=== PATIENT | female | born 1965 | race Caucasian/White ===

== ENCOUNTER 2024-01-03 19:25 | Emergency (ER) | payer OTHER ==
--- NOTE | 2024-01-03 19:52 | ED ---
General Adult HPI - General Source: RN notes reviewed <Chato Perez - Last Filed: 01/03/24 19:52> <Brock Rojas - Last Filed: 01/04/24 03:47> - General Stated complaint: Fever Time Seen by Provider: 01/03/24 19:51 - History of Present Illness Initial comments: 58-year-old female presented to the ED with complaints of URI symptoms. Patient reports over the past few days has had dry cough, sore throat, and fever. Denies abdominal pain. Denies changes in bowel or bladder habits. Of note, patient is from [place] due to alcohol abuse. Denies IV drug use. (Chato Perez) Patient is a 58-year-old female who presents emergency department complaining of fever. Presents from [place]. Has a history of borderline diabetes and hypertension. Has had a fever and has been feeling ill for a few days. Has had a sore throat with a cough. Denies any nausea or vomiting. Denies any chest pain or shortness of breath. Presents for further evaluation at this time. Last alcoholic beverage was 3 weeks ago. Has had [place] for alcohol abuse. Patient originally seen as a quick note. I evaluate the patient when she was placed in a room. (Brock Rojas) - Related Data Previous Rx's Medication Instructions Recorded Albuterol Inhaler [Ventolin Hfa 2 puff INHALATION QID #8 gm 01/04/24 Inhaler] Albuterol Nebulized [Ventolin 2.5 mg INHALATION Q4H PRN 8 Days 01/04/24 Nebulized] #150 ml Amoxic-Pot Clav 875-125Mg 1 tab PO Q12HR 7 Days #14 tab 01/04/24 [Augmentin 875-125] Ibuprofen [Motrin] 400 mg PO Q6HR PRN 7 Days #28 tab 01/04/24 predniSONE [Deltasone] 40 mg PO DAILY 5 Days #10 tab 01/04/24 Allergies Allergy/AdvReac Type Severity Reaction Status Date / Time No Known Allergies Allergy Verified 01/03/24 19:55 Review of Systems ROS Other: All systems not noted in ROS Statement are negative. <Chato Perez - Last Filed: 01/03/24 19:52> ROS Other: All systems not noted in ROS Statement are negative. <Brock Rojas - Last Filed: 01/04/24 03:47> ROS Statement: Those systems with pertinent positive or pertinent negative responses have been documented in the HPI. Review of Systems: CONST: Endorses fever EYES: Denies blurry vision ENT: Endorses nasal congestion C/V: Denies Chest pain RESP: Endorses cough GI: Denies abdominal pain : Denies dysuria SKIN: Denies rash. MSK: Denies joint pain. NEURO: Denies headache (Brock Rojas) General Exam <Chato Perez - Last Filed: 01/03/24 19:52> <Brock Rojas - Last Filed: 01/04/24 03:47> - General Exam Comments Initial Comments: Visual Physical Exam Vital signs reviewed General: Well-appearing, nontoxic, no acute distress. Head: Normocephalic, atraumatic Eyes: PERRLA, EOMI ENT: Airway patent Chest: Nonlabored breathing Skin: No visual rash, normal skin tone Neuro: Alert and oriented 3 Musculoskeletal: No gross abnormalities (Chato Perez) General: Appears in no acute distress. Febrile. HEAD: Normal with no signs of head trauma. EYES: PERRLA, EOMI, conjunctiva normal, no discharge. ENT: Hearing grossly intact, normal oropharynx. RESPIRATORY: Mostly clear breath sounds bilaterally. Very mild end expiratory wheezing. C/V: Tachycardic with regular rhythm.. S1 and S2 auscultated, peripheral pulses 2+ and intact throughout ABD: Abd is soft, nontender, nondistended EXT: Normal range of motion, no obvious deformity SKIN: No rashes or lesions observed on exposed skin. NEURO: Alert and oriented x 4. (Borck Rojas) Course Vital Signs 01/03/24 01/03/24 01/03/24 19:48 21:15 22:07 Temperature 103 F H 99.0 F Pulse Rate 129 H 115 H 120 H Respiratory 20 22 Rate Blood Pressure 122/65 118/64 O2 Sat by Pulse 94 L 98 Oximetry 01/03/24 01/04/24 22:17 00:00 Temperature 98.2 F Pulse Rate 116 H 97 Respiratory 18 Rate Blood Pressure 102/63 O2 Sat by Pulse 93 L Oximetry Medical Decision Making <Chato Perez - Last Filed: 01/03/24 19:52> - Lab Data Result diagrams: 01/03/24 21:00 01/03/24 21:00 <Brock Rojas - Last Filed: 01/04/24 03:47> - Medical Decision Making Quicknote portion performed. Signed Chato Perez PA-C (Chato Perez) Was pt. sent in by a medical professional or institution (, PA, G[employer]OLINE PLANT OPERATOR, urgent care, hospital, or fdc...) When possible be specific @ -Sent by [facility] [place] for evaluation for fever Did you speak to anyone other than the patient for history (EMS, parent, family, police, friend...)? What history was obtained from this source @ -No Did you review nursing and triage notes (agree or disagree)? Why? @ -I reviewed and agree with nursing and triage notes Were old charts reviewed (outside hosp., previous admission, EMS record, old EKG, old radiological studies, urgent care reports/EKG's, fdc records)? Report findings @ -Old charts were reviewed. Differential Diagnosis (chest pain, altered mental status, abdominal pain women, abdominal pain men, vaginal bleeding, weakness, fever, dyspnea, syncope, headache, dizziness, GI bleed, back pain, seizure, CVA, palpatations, mental health, musculoskeletal)? @ -Differential Fever: Pneumonia, viral URI, endocarditis, myocarditis, pericarditis, otitis, sinusitis, peritonsillar Abscess, retropharyngeal Abscess, epiglottitis, peritonitis, appendicitis, Jahaira cystitis, diverticulitis, hepatitis, colitis, UTI, PID, TOA, pyelonephritis, prostatitis, epididymitis, meningitis, enceph alitis, pulmonary embolism, CVA, thyroid storm, pancreatitis, adrenal crisis, cavernous sinus thrombosis, this is not meant to be an all-inclusive list. EKG interpreted by me (3pts min.). @ -None done X-rays interpreted by me (1pt min.). @ -Chest x-ray reveals no obvious evidence of acute infectious process. CT interpreted by me (1pt min.). @ -None done U/S interpreted by me (1pt. min.). @ -None done What testing was considered but not performed or refused? (CT, X-rays, U/S, labs)? Why? @ -None What meds were considered but not given or refused? Why? @ -None Did you discuss the management of the patient with other professionals (professionals i.e. , PA, G[employer]INE PLANT OPERATOR, lab, RT, psych nurse, social insurance administrator, tax auditor, teacher, project officer, foster care case manager)? Give summary @ -No Was smoking cessation discussed for >3mins.? @ -No Was critical care preformed (if so, how long)? @ -No Were there social determinants of health that impacted care today? How? (Homelessness, low income, unemployed, alcoholism, drug addiction, transportation, low edu. Level, literacy, decrease access to med. care, residential, rehab)? @ -No Was there de-escalation of care discussed even if they declined (Discuss DNR or withdrawal of care, Hospice)? DNR status @ -No What co-morbidities impacted this encounter? (DM, HTN, Smoking, COPD, CAD, Cancer, CVA, ARF, Chemo, Hep., AIDS, mental health diagnosis, sleep apnea, mo rbid obesity)? @ -None Was patient admitted / discharged? Hospital course, mention meds given and r oute, prescriptions, significant lab abnormalities, going to OR and other pertinent info. @ -Based on patient's presentation and physical exam, patient presents emergency department for febrile illness. Seems to be upper respiratory illness. Is currently at a rehab facility. Originally seen as a quick note. We will obtain viral swabs, strep swab as well as basic labs. She will receive an IV fluid bolus and breathing treatment. Chest x-ray will also be obtained. Urinalysis ordered and we will obtain if needed. Patient was in agreement this plan. Was given Tylenol Motrin in triage. Fevers improved at this time. Vital signs otherwise within acceptable limits. Patient's labs returned remarkable for leukocytosis in the 20s however patient does have a strep infection and this is a consistent finding with strep pharyngitis. Lactic acid is normal. Patient is still testing positive for COVID despite having the infection 2 to 3 weeks ago. Labs otherwise unremarkable. Chest x-ray shows no obvious acute cardiopulmonary process. On reevaluation, I discussed results with the patient. She does have a history of tobacco abuse and therefore we will treat for COPD as well as for strep pharyngitis. I believe it is safer to be discharged home at this time and she was in agreement this plan. Patient will be given a dose of Augmentin, was already given IV Solu-Medrol as well as a breathing treatment. I will provide prescriptions for prednisone, albuterol inhaler, albuterol nebulizer, ibuprofen, as well as Augmentin. Patient was in agreement this plan. I instructed the patient to follow up with their PCP in the next 1-3 days. I explained that the patient should return to the emergency department if they experience any worsening symptoms. Strict return precautions were discussed with the patient. The patient expressed understanding of these instructions. I answered all questions that the patient had. The patient was discharged home in good condition with their prescriptions and follow up information. Undiagnosed new problem with uncertain prognosis? @ -No Drug Therapy requiring intensive monitoring for toxicity (Heparin, Nitro, Insulin, Cardizem)? @ -No Were any procedures done? @ -No Diagnosis/symptom? @ -COVID-19 infection, strep pharyngitis, COPD Acute, or Chronic, or Acute on Chronic? @ -Acute Uncomplicated (without systemic symptoms) or Complicated (systemic symptoms)? @ -Complicated Side effects of treatment? @ -None Exacerbation, Progression, or Severe Exacerbation] @ -No Poses a threat to life or bodily function? @ -Unlikely (Brock Rojas) - Lab Data Lab Results 01/03/24 01/03/24 01/03/24 Range/Units 21:00 21:00 21:00 WBC 25.7 H (3.8-10.6) k/uL RBC 3.35 L (3.80-5.40) m/uL Hgb 9.5 L (11.4-16.0) gm/dL Hct 30.2 L (34.0-46.0) % MCV 90.1 (80.0-100.0) fL MCH 28.5 (25.0-35.0) pg MCHC 31.6 (31.0-37.0) g/dL RDW 18.8 H (11.5-15.5) % Plt Count 417 (150-450) k/uL MPV 8.6 Neutrophils % (Manual) 84 % Lymphocytes % (Manual) 1 % Monocytes % (Manual) 15 % Neutrophils # (Manual) 21.59 H (1.3-7.7) k/uL Lymphocytes # (Manual) 0.26 L (1.0-4.8) k/uL Monocytes # (Manual) 3.86 H (0-1.0) k/uL Nucleated RBCs 0 (0-0) /100 WBC Manual Slide Review Performed Hypochromasia Slight Anisocytosis Slight Sodium 131 L (137-145) mmol/L Potassium 4.0 (3.5-5.1) mmol/L Chloride 102 (98-107) mmol/L Carbon Dioxide 20 L (22-30) mmol/L Anion Gap 9 mmol/L BUN 15 (7-17) mg/dL Creatinine 0.48 L (0.52-1.04) mg/dL Est GFR (CKD-EPI)AfAm >90 (>60 ml/min/1.73 sqM) Est GFR (CKD-EPI)NonAf >90 (>60 ml/min/1.73 sqM) Glucose 139 H (74-99) mg/dL Plasma Lactic Acid Isaac (0.7-2.0) mmol/L Calcium 8.9 (8.4-10.2) mg/dL Total Bilirubin 0.4 (0.2-1.3) mg/dL AST 28 (14-36) U/L ALT 12 (4-34) U/L Alkaline Phosphatase 112 (38-126) U/L Total Protein 6.6 (6.3-8.2) g/dL Albumin 3.5 (3.5-5.0) g/dL Urine Color Yellow Urine Appearance Clear (Clear) Urine pH 7.0 (5.0-8.0) Ur Specific [place] 1.019 (1.001-1.035) Urine Protein 1+ H (Negative) Urine Glucose (UA) Negative (Negative) Urine Ketones Negative (Negative) Urine Blood Negative (Negative) Urine Nitrite Negative (Negative) Urine Bilirubin Negative (Negative) Urine Urobilinogen <2.0 (<2.0) mg/dL Ur Leukocyte Esterase Moderate H (Negative) Urine RBC 3 (0-5) /hpf Urine WBC 5 (0-5) /hpf Ur Squamous Epith Cells <1 (0-4) /hpf Hyaline Casts 5 H (0-2) /lpf Urine Mucus Rare H (None) /hpf Influenza Type A (PCR) (Not Detectd) Influenza Type B (PCR) (Not Detectd) RSV (PCR) (Not Detectd) SARS-CoV-2 (PCR) (Not Detectd) Group A Strep (PCR) (Not Detectd) 01/03/24 01/03/24 01/03/24 Range/Units 22:20 22:30 23:23 WBC (3.8-10.6) k/uL RBC (3.80-5.40) m/uL Hgb (11.4-16.0) gm/dL Hct (34.0-46.0) % MCV (80.0-100.0) fL MCH (25.0-35.0) pg MCHC (31.0-37.0) g/dL RDW (11.5-15.5) % Plt Count (150-450) k/uL MPV Neutrophils % (Manual) % Lymphocytes % (Manual) % Monocytes % (Manual) % Neutrophils # (Manual) (1.3-7.7) k/uL Lymphocytes # (Manual) (1.0-4.8) k/uL Monocytes # (Manual) (0-1.0) k/uL Nucleated RBCs (0-0) /100 WBC Manual Slide Review Hypochromasia Anisocytosis Sodium (137-145) mmol/L Potassium (3.5-5.1) mmol/L Chloride (98-107) mmol/L Carbon Dioxide (22-30) mmol/L Anion Gap mmol/L BUN (7-17) mg/dL Creatinine (0.52-1.04) mg/dL Est GFR (CKD-EPI)AfAm (>60 ml/min/1.73 sqM) Est GFR (CKD-EPI)NonAf (>60 ml/min/1.73 sqM) Glucose (74-99) mg/dL Plasma Lactic Acid Isaac 1.0 (0.7-2.0) mmol/L Calcium (8.4-10.2) mg/dL Total Bilirubin (0.2-1.3) mg/dL AST (14-36) U/L ALT (4-34) U/L Alkaline Phosphatase (38-126) U/L Total Protein (6.3-8.2) g/dL Albumin (3.5-5.0) g/dL Urine Color Urine Appearance (Clear) Urine pH (5.0-8.0) Ur Specific [place] (1.001-1.035) Urine Protein (Negative) Urine Glucose (UA) (Negative) Urine Ketones (Negative) Urine Blood (Negative) Urine Nitrite (Negative) Urine Bilirubin (Negative) Urine Urobilinogen (<2.0) mg/dL Ur Leukocyte Esterase (Negative) Urine RBC (0-5) /hpf Urine WBC (0-5) /hpf Ur Squamous Epith Cells (0-4) /hpf Hyaline Casts (0-2) /lpf Urine Mucus (None) /hpf Influenza Type A (PCR) Not Detected (Not Detectd) Influenza Type B (PCR) Not Detected (Not Detectd) RSV (PCR) Not Detected (Not Detectd) SARS-CoV-2 (PCR) Detected A (Not Detectd) Group A Strep (PCR) DETECTED A (Not Detectd) Disposition <Chato Perez - Last Filed: 01/03/24 19:52> Is patient prescribed a controlled substance at d/c from ED?: No Time of Disposition: 00:03 <Brock Rojas - Last Filed: 01/04/24 03:47> Clinical Impression: COVID-19, Strep pharyngitis, COPD (chronic obstructive pulmonary disease) Disposition: HOME SELF-CARE Condition: Good Instructions (If sedation given, give patient instructions): Strep Throat (ED), COPD (Chronic Obstructive Pulmonary Disease) (ED), COVID-19 (Coronavirus Disease 2019) (ED) Prescriptions: Amoxic-Pot Clav 875-125Mg [Augmentin 875-125] 1 tab PO Q12HR 7 Days #14 tab predniSONE [Deltasone] 40 mg PO DAILY 5 Days #10 tab Ibuprofen [Motrin] 400 mg PO Q6HR PRN 7 Days #28 tab PRN Reason: Fever Albuterol Inhaler [Ventolin Hfa Inhaler] 2 puff INHALATION QID #8 gm Albuterol Nebulized [Ventolin Nebulized] 2.5 mg INHALATION Q4H PRN 8 Days #150 ml PRN Reason: dyspena Referrals: None,Stated [Primary Care Provider] - 1-2 days
[2024-01-03] MEDS: IBUPROFEN 600 MG TAB PO STA (20:18)
[2024-01-03] MEDS: ACETAMINOPHEN TAB 500 MG TAB PO STA (20:18)
--- NOTE | 2024-01-03 20:22 | XR ---
EXAMINATION TYPE: XR chest 2V DATE OF EXAM: 01/03/2024 8:10 PM CLINICAL INDICATION:Female, 58 years old with history of r/o pna; [facility] COMPARISON: None. TECHNIQUE: XR chest 2V Frontal and lateral views of the chest. FINDINGS: Lungs/Pleura: There is no evidence of pleural effusion, focal consolidation, or pneumothorax. Pulmonary vascularity: Unremarkable. Heart/mediastinum: Cardiomediastinal silhouette is unremarkable. Musculoskeletal: No acute osseous pathology. IMPRESSION: No acute cardiopulmonary disease/process.
[2024-01-03 21:26] LABS: Anisocytosis Slight; HCT 30.2 % (34.0-46.0); HGB 9.5 gm/dL (11.4-16.0); Hypochromasia Slight; MCH 28.5 pg (25.0-35.0); MCHC 31.6 g/dL (31.0-37.0); MCV 90.1 fL (80.0-100.0); Mean Platelet Volume 8.6; Platelet Count 417 k/uL (150-450); RBC 3.35 m/uL (3.80-5.40); RDW 18.8 % (11.5-15.5); WBC 25.7 k/uL (3.8-10.6)
[2024-01-03 21:40] LABS: ALT 12 U/L (4-34); AST 28 U/L (14-36); African American GFR (CKD) >90 (>60 ml/min/1.73 sqM); Albumin 3.5 g/dL (3.5-5.0); Alkaline Phosphatase 112 U/L (38-126); Anion Gap 9 mmol/L; Blood Urea Nitrogen 15 mg/dL (7-17); Calcium 8.9 mg/dL (8.4-10.2); Carbon Dioxide 20 mmol/L (22-30); Chloride 102 mmol/L (98-107); Glucose 139 mg/dL (74-99); Non-African American GFR(CKD) >90 (>60 ml/min/1.73 sqM); Sodium 131 mmol/L (137-145); Total Bilirubin 0.4 mg/dL (0.2-1.3); Total Protein 6.6 g/dL (6.3-8.2)
[2024-01-03] MEDS: SODIUM CHLORIDE 0.9% 1,000 ML IV ONE (21:40)
[2024-01-03 22:02] LABS: Lymphocytes # (M) 0.26 k/uL (1.0-4.8); Monocytes # (M) 3.86 k/uL (0-1.0); Neutrophils # (M) 21.59 k/uL (1.3-7.7); Neutrophils % (M) 84 %; Nucleated Red Blood Cells 0 /100 WBC (0-0); Total Cells Counted 100
[2024-01-03] MEDS: IPRATROPIUM-ALBUTEROL 3 ML NEB INHALATION STA (22:06)
[2024-01-03 22:17] LABS: Appearance,Urine Clear (Clear); Bilirubin,Urine Negative (Negative); Blood,Urine Negative (Negative); Color,Urine Yellow; Glucose,Urine (UA) Negative (Negative); Hyaline Casts,Urine 5 /lpf (0-2); Ketones,Urine Negative (Negative); Leukocyte Esterase,Urine Moderate (Negative); Mucus,Urine Rare /hpf; Nitrite,Urine Negative (Negative); Protein,Urine 1+ (Negative); RBC,Urine 3 /hpf (0-5); Specific Gravity,Urine 1.019 (1.001-1.035); Squamous Epithelial Cell,Urine <1 /hpf (0-4); Urobilinogen,Urine <2.0 mg/dL (<2.0); WBC,Urine 5 /hpf (0-5)
[2024-01-03] MEDS: methylPREDNISolone SOD SUCCI 125 MG/2 ML VIAL IV STA (22:27)
[2024-01-03] MEDS: SODIUM CHLORIDE 0.9% 1,000 ML IV STA (23:16)
[2024-01-04 00:48] VITALS: BP 102/63; PULSE 97; RESP 18; TEMP 98.2
== END 2024-01-04 02:43 | disposition home or self-care (01) ==
LOC: EC 19:25
DX: U07.1 COVID-19 (principal)
CPT/HCPCS: 36415; 94640; 87651; 80053; 83605; 85025; 81001; 87636; 71046; 99284; 96374; 96361 ×2; J2919